=== PATIENT | female | born 1960 | race Caucasian/White ===

== ENCOUNTER 2017-07-31 13:22 | Emergency (ER) | payer SELFPAY ==
[2017-07-31] MEDS ORDERED: Ketorolac INJ* 30 MG/ML 1 ML VIAL IV PUSH ONE (14:03)
[2017-07-31] MEDS ORDERED: Naproxen TAB* 250 MG PO ONE (15:10)
--- NOTE | 2017-07-31 15:33 | RAD ---
Indication: RIGHT knee pain following fall a couple of weeks ago. Pain with extension. Anterior pain with posterior radiation. Surgery 2 years ago. Comparison: March 02, 2016 Technique: RIGHT knee: AP, tunnel, crosstable lateral, sunrise views. Report: Negative for joint effusion, fracture, joint space narrowing, or malalignment. Unremarkable soft tissue contours. IMPRESSION: Negative radiographic exam of the RIGHT knee.
[2017-07-31 16:16] VITALS: BP 147/66
--- NOTE | 2017-08-01 17:23 | ED ---
Liv Rizzo Edward, scribed for Filipe Salamanca MD on 07/31/17 at 1351 . Lower Extremity - HPI Summary HPI Summary: 56 y/o female presents to the ED c/o sudden onset R knee pain starting 3 days ago. Pt states she fell on her knee 3 days ago onto some rocks and it keeps "locking" on her. The pain is aggravated with movement and rated 10/10 in severity at triage. - History of Current Complaint Chief Complaint: EDExtremityLower Stated Complaint: RT KNEE PAIN/FROM FALL Time Seen by Provider: 07/31/17 13:49 Hx Obtained From: Patient Mechanism Of Injury: Fall From A Standing Position Onset of Pain: Immediate, Post Accident Onset/Duration: Days Severity Currently: Severe Pain Intensity: 10 Pain Scale Used: 0-10 Numeric Timing: Lasting Days Location: Is Discrete @ - R knee Associated Signs And Symptoms: Positive: Knee Pain - Allergies/Home Medications Allergies/Adverse Reactions: Allergies Allergy/AdvReac Type Severity Reaction Status Date / Time No Known Allergies Allergy Verified 07/10/15 08:28 PMH/Surg Hx/FS Hx/Imm Hx Previously Healthy: No Cardiovascular History: Denies: Hx Pacemaker/ICD Musculoskeletal History: Reports: Hx Arthritis - RIGHT KNEE, Other Musculoskeletal History - arthritic,pain climbing stairs,physical therapy only a little help,popping Sensory History: Denies: Hx Contacts or Glasses, Hx Hearing Aid Opthamlomology History: Denies: Hx Contacts or Glasses Neurological History: Reports: Hx Migraine - NONE IN A LONG TIME Psychiatric History: Reports: Hx Anxiety Denies: Hx Panic Disorder - Surgical History Surgery Procedure, Year, and Place: 1989 TUBAL LIGATION, [facility] [place] Hx Anesthesia Reactions: No - Immunization History Date of Tetanus Vaccine: UNKNOWN Date of Influenza Vaccine: UNKNOWN Infectious Disease History: No Infectious Disease History: Denies: Traveled Outside the [place] in Last 30 Days - Family History Known Family History: Negative: Diabetes - Social History Alcohol Use: None Hx Substance Use: No Substance Use Type: Reports: None Hx Tobacco Use: Yes Smoking Status (MU): Light Every Day Tobacco Smoker Type: Cigarettes - 8 PER DAY Review of Systems Constitutional: Negative Eyes: Negative ENT: Negative Cardiovascular: Negative Respiratory: Negative Gastrointestinal: Negative Genitourinary: Negative Positive: Arthralgia - R knee pain Skin: Negative Neurological: Negative Psychological: Normal All Other Systems Reviewed And Are Negative: Yes Physical Exam - Summary Physical Exam Summary: VITAL SIGNS: Reviewed. GENERAL: ~Patient is a well-developed and nourished female who is lying comfortable in the stretcher. ~Patient is not in any acute respiratory distress. HEAD AND FACE: No signs of trauma. ~No ecchymosis, hematomas or skull depressions. No sinus tenderness. EYES: PERRLA, EOMI x 2, No injected conjunctiva, no nystagmus. EARS: Hearing grossly intact. Ear canals and tympanic membranes are within normal limits. MOUTH: Oropharynx within normal limits. NECK: Supple, trachea is midline, no adenopathy, no JVD, no carotid bruit, no c- spine tenderness, neck with full ROM. CHEST: Symmetric, no tenderness at palpation LUNGS: Clear to auscultation bilaterally. No wheezing or crackles. CVS: Regular rate and rhythm, S1 and S2 present, no murmurs or gallops appreciated. ABDOMEN: Soft, non-tender. No signs of distention. No rebound no guarding, and no masses palpated. Bowel sounds are normal. EXTREMITIES: No edema, no cyanosis or clubbing. No ecchymosis, erythema or deformities in the R knee. Decreased ROM secondary to pain in the R knee. Anterior drawer test negative. NEURO: Alert and oriented x 3. No acute neurological deficits. Speech is normal and follows commands. SKIN: Dry and warm Triage Information Reviewed: Yes Vital Signs On Initial Exam: Initial Vitals Temp Pulse Resp BP Pulse Ox 98.1 F 80 18 115/88 97 07/31/17 13:24 07/31/17 13:24 07/31/17 13:24 07/31/17 13:24 07/31/17 13:24 Vital Signs Reviewed: Yes Diagnostics - Vital Signs Vital Signs Temp Pulse Resp BP Pulse Ox 07/31/17 13:24 98.1 F 80 18 115/88 97 - Laboratory Lab Statement: Any lab studies that have been ordered have been reviewed, and results considered in the medical decision making process. - Radiology KNEE XR Xray Interpretation: No Acute Changes - Negative radiographic exam of the RIGHT knee. Radiology Interpretation Completed By: Radiologist Lower Extremity Course/Dx - Course Assessment/Plan: 56 y/o female presents to the ED c/o sudden onset R knee pain starting 3 days ago. Pt states she fell on her knee 3 days ago onto some rocks and it keeps "locking" on her. The pain is aggravated with movement and rated 10 /10 in severity at triage. KNEE XR SHOWS Negative radiographic exam of the RIGHT knee. R knee XR negative for fracture dislocation. The patient was given Naproxen for pain. The pt will be d/c home with f/u with pcp. The pt was given a prescription for Naproxen. The pt is hemodynamically stable and A&Ox3. - Diagnoses Differential Diagnosis/HQI/PQRI: Positive: Arthritis, Bursitis, Cellulitis, Contusion, Fracture (Closed), Sprain, Strain Provider Diagnoses: Right knee pain Discharge - Discharge Plan Condition: Stable Disposition: HOME Prescriptions: Naproxen TAB* [Naprosyn 250 mg TAB*] 500 mg PO Q8H PRN #20 tab PRN Reason: Pain Patient Education Materials: Knee Pain (ED) Forms: *Work Release Referrals: Keven Kim MD [Primary Care Provider] - 3 Days (PLEASE F/U IN 2-3 DAYS) The documentation as recorded by the Liv carr Edward accurately reflects the service I personally performed and the decisions made by , Filipe Salamanca MD.
== END 2017-07-31 16:15 | disposition home or self-care (01) ==
LOC: ED 13:22
DX: M25.561 Pain in right knee (principal)
CPT/HCPCS: 96374; 99282; A9270-GY

== ENCOUNTER 2017-10-19 14:05 | Emergency (ER) | payer OTHER ==
--- NOTE | 2017-10-19 16:52 | ED ---
Influenza-Like Illness - History of Current Complaint Chief Complaint: EDBackInjuryPain Time Seen by Provider: 10/19/17 14:44 - Allergy/Home Medications Allergies/Adverse Reactions: Allergies Allergy/AdvReac Type Severity Reaction Status Date / Time No Known Allergies Allergy Verified 10/19/17 14:10 PMH/Surg Hx/FS Hx/Imm Hx Cardiovascular History: Denies: Hx Pacemaker/ICD Musculoskeletal History: Reports: Hx Arthritis - RIGHT KNEE, Other Musculoskeletal History - arthritic,pain climbing stairs,physical therapy only a little help,popping Sensory History: Denies: Hx Contacts or Glasses, Hx Hearing Aid Opthamlomology History: Denies: Hx Contacts or Glasses Neurological History: Reports: Hx Migraine - NONE IN A LONG TIME Psychiatric History: Reports: Hx Anxiety Denies: Hx Panic Disorder - Surgical History Surgery Procedure, Year, and Place: 1988 TUBAL LIGATION, Hx Anesthesia Reactions: No - Immunization History Date of Tetanus Vaccine: UNKNOWN Date of Influenza Vaccine: UNKNOWN Infectious Disease History: No Infectious Disease History: Denies: Traveled Outside the [place] in Last 30 Days - Family History Known Family History: Positive: None - denies FHx Negative: Diabetes - Social History Alcohol Use: None Hx Substance Use: No Substance Use Type: Reports: None Hx Tobacco Use: Yes Smoking Status (MU): Light Every Day Tobacco Smoker Type: Cigarettes - 8 PER DAY Physical Exam Vital Signs On Initial Exam: Initial Vitals Temp Pulse Resp BP Pulse Ox 96.6 F 78 20 134/91 97 10/19/17 14:11 10/19/17 14:11 10/19/17 14:11 10/19/17 14:11 10/19/17 14:11 - [place] Coma Scale Coma Scale Total: 15 Diagnostics - Vital Signs Vital Signs Temp Pulse Resp BP Pulse Ox 10/19/17 14:11 96.6 F 78 20 134/91 97 - Laboratory Lab Statement: Any lab studies that have been ordered have been reviewed, and results considered in the medical decision making process. - Radiology chest Xray Interpretation: No Acute Changes - NO EVIDENCE FOR ACTIVE CARDIOPULMONARY DISEASE. Radiology Interpretation Completed By: Radiologist - and myself Flu Symptom Course/Dx - Diagnoses Differential Diagnosis/HQI/PQRI: Positive: Bronchitis, Influenza, Pneumonia, Upper Respiratory Infection, Other - sinusitis Provider Diagnoses: Bronchitis Discharge - Discharge Plan Condition: Stable Disposition: HOME Prescriptions: Albuterol HFA INHALER* [Ventolin HFA Inhaler*] 1 puff INH Q4H PRN #1 mdi PRN Reason: Sob/Wheezing Azithromycin TAB* [Zithromax TAB (Z-NANCIE) 250 mg #6 tabs] 2 tab PO .TODAY, THEN 1 DAILY #1 nancie Fluticasone NASAL SPRAY 50MCG* [Flonase NASAL SPRAY 50MCG*] 2 spray BOTH NARES DAILY #1 btl Patient Education Materials: Upper Respiratory Infection (ED), Acute Bronchitis (ED) Referrals: Ruiz Banuelos MD [Primary Care Provider] - Additional Instructions: Take prescribed medication as directed. Inhaler as needed for SOB/wheezing. Recommend taking mucinex and using flonase. Ibuprofen/tylenol for body aches and headache. Increase fluid intake and get plenty of rest. Hot showers. Any new or worsening symptoms please seek medical attention immediately. Follow up with PCP.
--- NOTE | 2017-10-19 17:29 | RAD ---
INDICATION: Fever myalgia and cough. COMPARISON: Comparison is made with prior chest x-ray study from April 12, 2017. TECHNIQUE: Dual-energy PA and lateral views of the chest were obtained. FINDINGS: The heart is within normal limits in size. Mediastinal and hilar contours appear within normal limits. The lungs are clear. No pleural effusion is present. IMPRESSION: NO EVIDENCE FOR ACTIVE CARDIOPULMONARY DISEASE.
[2017-10-19 17:43] VITALS: BP 142/93
== END 2017-10-19 17:43 | disposition home or self-care (01) ==
LOC: ED 14:05
DX: J40 Bronchitis, not specified as acute or chronic (principal); F17.210 Nicotine dependence, cigarettes, uncomplicated
CPT/HCPCS: 71020; 87502; 99282

== ENCOUNTER 2018-03-27 18:14 | Emergency (ER) | payer OTHER ==
[2018-03-27 18:24] VITALS: BP 132/89
--- NOTE | 2018-03-27 18:47 | UC ---
Knee Pain HPI - HPI Summary HPI Summary: PATIENT PRESENTS WITH 2 WEEKS OF PROGRESSIVELY WORSENING RIGHT KNEE PAIN. HAS A HISTORY OF RIGHT KNEE ARTHROSCOPY MANY YEARS AGO AND HAS HAD INTERMITTENT PAIN SINCE THEN BUT OVER THE PAST 2 WEEKS IT HAS BECOME WORSE AND CONSTANT. SHE DENIES ANY RECENT INJURY OR TRAUMA. KNEE POPS AND FEELS UNSTABLE WHEN SHE WEIGHTBEARS. - History of Current Complaint Chief Complaint: UCLowerExtremity Stated Complaint: KNEE PAIN Time Seen by Provider: 03/27/18 18:24 Hx Obtained From: Patient Onset/Duration: Gradual Onset, Lasting Weeks, Still Present Severity Initially: Moderate Severity Currently: Moderate Pain Intensity: 6 Pain Scale Used: 0-10 Numeric Character: Sharp Aggravating Factor(s): Movement, Weight Bearing Alleviating Factor(s): Rest Associated Signs And Symptoms: Positive: Swelling Able to Bear Weight: Yes - with pain - Allergies/Home Medications Allergies/Adverse Reactions: Allergies Allergy/AdvReac Type Severity Reaction Status Date / Time No Known Allergies Allergy Verified 03/27/18 18:24 Home Medications: Home Medications Acetaminophen [Mapap] 1,000 mg PO PRN 03/27/18 [History] PMH/Surg Hx/FS Hx/Imm Hx Previously Healthy: Yes - Surgical History Surgical History: Yes Surgery Procedure, Year, and Place: 1988 TUBAL LIGATION, [facility], RIGHT KNEE CARTILAGE REPLACED - Family History Known Family History: Positive: None - denies FHx Negative: Diabetes - Social History Alcohol Use: None Substance Use Type: None Smoking Status (MU): Current Every Day Smoker Type: Cigarettes Amount Used/How Often: 5 CIG/DAY Review of Systems Constitutional: Negative Skin: Negative Respiratory: Negative Cardiovascular: Negative Gastrointestinal: Negative Musculoskeletal: Arthralgia, Decreased ROM All Other Systems Reviewed And Are Negative: Yes Physical Exam Triage Information Reviewed: Yes Appearance: Well-Appearing, No Pain Distress, Well-Nourished Vital Signs: Initial Vital Signs Temp 98.7 F 03/27/18 18:20 Pulse 87 03/27/18 18:20 Resp 16 03/27/18 18:20 BP 132/89 03/27/18 18:20 Pulse Ox 96 03/27/18 18:20 Vital Signs Reviewed: Yes Eyes: Positive: Conjunctiva Clear ENT: Positive: Hearing grossly normal Neck: Positive: Supple Respiratory: Positive: No respiratory distress, No accessory muscle use Cardiovascular: Positive: Pulses Normal Abdomen Description: Positive: Soft Musculoskeletal: Positive: ROM Limited @ - RIGHT KNEE, Edema @ - MILD SWOLLEN RIGHT MEDIAL KNEE, Other: - RIGHT KNEE: MEDIAL LINE TENDERNESS. MCL AND LCL INTACT TO STRESS TESTING. NEG LACHMANS. NEG DRAWERS SIGNS. POS MCMURRAYS MEDIALLY. MILD TENDERNESS OVER PATELLAR LIGAMENT, NONE OVER QUADRICEPS TENDON. DECREASED ROM (FLEXION). Neurological: Positive: Alert Psychological: Positive: Age Appropriate Behavior Skin: Negative: rashes Diagnostics - Radiology RIGHT KNEE XRAY Xray Interpretation: No Acute Changes Radiology Interpretation Completed By: Radiologist Knee Pain Course/Dx - Course Course Of Treatment: X-RAY UNREMARKABLE. SUSPECT INTERNAL INJURY TO RIGHT KNEE. PATIENT DECLINES KNEE IMMOBILIZER AND CRUTCHES TODAY. WILL WRAP WITH DAVID BANDAGE AND RECOMMEND REST, ICE, COMPRESSION AND ELEVATION. FOLLOW-UP WITH ORTHOPEDICS FOR FURTHER EVALUATION. - Differential Dx/Diagnosis Provider Diagnoses: SUSPECTED INTERNAL RIGHT KNEE INJURY Discharge - Sign-Out/Discharge Documenting (check all that apply): Discharge/Admit/Transfer - Discharge Plan Condition: Stable Disposition: HOME Patient Education Materials: Knee Pain (ED) Forms: *Work Release Referrals: Jose Gurrola MD [Medical Doctor] - 1 Week Additional Instructions: RIGHT KNEE XRAY TODAY UNREMARKABLE. FOLLOW-UP WITH ORTHO FOR FURTHER EVALUATION. REST, ICE, COMPRESS, ELEVATE. SUSPECTED INTERNAL KNEE INJURY: The examiner of your injured knee suspects an internal injury to the cartilage or internal ligaments. This must be further investigated by an human resources benefits specialist. The knee should be protected, ice packed, and elevated while awaiting your follow-up exam by the orthopedist. If there is severe swelling, severe pain, or any new symptoms while awaiting your exam, you should call the orthopedist. (If he/she is unavailable, call us or return for re-examination.) - Billing Disposition and Condition Condition: STABLE Disposition: HOME
--- NOTE | 2018-03-27 19:39 | RAD ---
HISTORY: Right knee pain COMPARISONS: July 31, 2017 VIEWS: 4, Frontal, lateral, axial, and oblique views of the right knee FINDINGS: BONE DENSITY: Normal. BONES: There is no displaced fracture. JOINTS: There is no arthropathy. There is no suprapatellar joint effusion or lipohemarthrosis. ALIGNMENT: There is no dislocation. SOFT TISSUES: Unremarkable. OTHER FINDINGS: None. IMPRESSION: NO ACUTE OSSEOUS INJURY. IF SYMPTOMS PERSIST, RECOMMEND REPEAT IMAGING.
== END 2018-03-27 20:00 | disposition home or self-care (01) ==
LOC: UCEAST 18:14
DX: S89.91XA Unspecified injury of right lower leg, initial encounter (principal); X58.XXXA Exposure to other specified factors, initial encounter; Y93.9 Activity, unspecified; Y92.9 Unspecified place or not applicable; F17.210 Nicotine dependence, cigarettes, uncomplicated
CPT/HCPCS: 99212; G0463

== ENCOUNTER 2018-08-01 13:02 | Day surgery (SDC) | payer OTHER ==
--- NOTE | 2018-07-28 14:58 | HP ---
PREOPERATIVE HISTORY AND PHYSICAL: DATE OF ADMISSION/SURGERY: 08/01/18 - [facility] DATE OF OFFICE VISIT: 07/28/18 ATTENDING SURGEON: Dr. Elvia Butler.* (DICTATED BY MUKESH CHANDLER) PROCEDURE: Right knee arthroscopic surgery. CHIEF COMPLAINT: Right knee. HISTORY OF PRESENT ILLNESS: Edith is a 57-year-old female who presents to the clinic for right knee pain due to possible meniscus tear. She has failed conservative measures and has therefore agreed to undergo right knee arthroscopic surgery with Dr. Butler on 08/01/18. PAST MEDICAL HISTORY: Migraine. PAST SURGICAL HISTORY: Tubal ligation and right knee scope. The patient denies prior complications with anesthesia. MEDICATIONS: 1. Tylenol 325 mg 2 every 6 hours as needed for pain. 2. Ibuprofen 600 mg 1 tab as needed for discomfort. ALLERGIES: No known drug allergies. FAMILY HISTORY: Positive for heart disease. SOCIAL HISTORY: She lives alone. She works in a correction. She is half-a- pack- per-day smoker. She denies alcohol consumption. She exercises regularly. She is right-hand dominant. REVIEW OF SYSTEMS: A 14-point review of systems was reviewed with the patient. Positive for current complaint, otherwise negative. Denies chest pain, shortness of breath, fever, chills, history of bleeding disorder, history of DVT or PE. Denies history of MRSA, hep C, or HIV. PHYSICAL EXAMINATION GENERAL: A 57-year-old well-developed, well-nourished female, in no acute distress. Alert and oriented x3. Appropriate mood and affect. Appropriate balance and coordination of the lower extremities. VITAL SIGNS: Height 62, weight 147, pulse 74, blood pressure 126/80, respiratory rate 18, temperature 97.6, BMI 26.9. HEENT: Normocephalic, atraumatic. PERRLA. Throat clear. NECK: Supple. PULMONARY: She does have mild wheezing in the right lower lung, but otherwise no wheezing, rhonchi, or rales. CARDIO: Regular rate and rhythm. S1, S2. No murmurs, gallops, or rubs. ABDOMEN: Positive bowel sounds. Soft, nontender. NEURO: Alert and oriented x3. Cranial nerves grossly intact. Sensation intact to light touch. MUSCULOSKELETAL: Right lower extremity: Skin is intact. No warmth or erythema. Tenderness about the fat pad. Tenderness over the medial joint line. Range of motion 2 to 120. Stable to varus and valgus stress. Stable Uyen and negative posterior drawer. Calf soft, nontender. +5/5 strength ankle dorsiflexion and plantar flexion. +2 PT pulse. Sensation intact to light touch distally. DIAGNOSTIC STUDIES: MRI of the right knee revealed no obvious medial or lateral meniscus tear, some chondrosis of the patella, and ACL and PCL were intact. ASSESSMENT AND PLAN: The patient is scheduled to undergo a right knee arthroscopic surgery with Dr. Butler on 08/01/18 for treatment of a possible meniscus tear. She will follow up 10 to 14 days postop for followup and suture removal. Percocet will be used for postop pain management as well as antibiotics since she has had a knee scope in the past. MUKESH CHANDLER [id number]/[facility] #: [id number] MELODIE
[~2018-08-01 13:02] MED LIST: Buffered Lidocaine 0.9% SYRIN* 5 ML/SYR SYRINGE INTRADERM ONE; Dexamethasone TAB* 4 MG ONE; Dexamethasone TAB* 4 MG PO ONE; DiMENhydriNATE IV* 50 MG/ML VIAL IV PUSH PRN; Famotidine IV* 10 MG/ML 2 ML (20 mg) IV ONE; Famotidine IV* 10 MG/ML 2 ML (20 mg) ONE; Morphine INJ* 2 MG/ML 1 ML SYRINGE (TWO MG - NEW SYRINGE VERSION) IV PRN; Naloxone* 0.4 MG/ML 1 ML VIAL IV PRN; Ondansetron INJ* 2 MG/ML VIAL ONE; Ondansetron ODT TAB* 4 MG ONE; PROCHLORPERAZINE INJ 5 MG/ML 2 ML VIAL IV PRN; Scopolamine 1.5 mg* PATCH TRANSDERM PRN; fentaNYL* 50 MCG/ML 2 ML VIAL (100 MCG VIAL) IV PRN; oxyCODONE/Acetamin 5/325 MG* TAB PO PRN
[2018-08-01] MEDS ORDERED: ceFAZolin 2 GM in NS PREMIX(*) 2 GM/100 ML BAG IVPB ONE (13:12)
[2018-08-01] MEDS ORDERED: KETAMINE HCL* 50 MG/ML 10 ML VIAL ONE (13:39)
[2018-08-01] MEDS ORDERED: Midazolam* 1 MG/ML 5 ML VIAL (5 MG) ONE (13:39)
[2018-08-01] MEDS ORDERED: fentaNYL* 50 MCG/ML 2 ML VIAL (100 MCG VIAL) ONE (13:39)
[2018-08-01] MEDS ORDERED: Lidocaine 1% MPF wEPI 200,000* 30 ML SDV ONE (14:00)
[2018-08-01] MEDS ORDERED: ROPIVACAINE 5 MG/ML 30 ML BTL (0.5%) ONE (14:01)
[2018-08-01] MEDS ORDERED: Propofol* 10 MG/ML 20 ML BTL IV PUSH ONE (15:31)
[2018-08-01] MEDS ORDERED: Lidocaine 2% PF * 5 ML VIAL ONE (15:31)
[2018-08-01] MEDS ORDERED: Ketorolac INJ* 30 MG/ML 1 ML VIAL ONE (15:31)
[2018-08-01 16:44] VITALS: BP 142/88
--- NOTE | 2018-08-02 04:21 | OP ---
CC: PCP, Dr. Kim * DATE OF OPERATION: 08/01/18 - [facility] DATE OF : 64 SURGEON: Elvia Butler MD BACK TENDER PULP DRIER: None available. ANESTHESIOLOGIST: Dr. Dale. ANESTHESIA: General. PRE-OP DIAGNOSIS: Right knee effusion with persistent pain. POST-OP DIAGNOSIS: Right knee medial and lateral meniscal tears with small 7 mm x 8 mm medial femoral condyle chondrosis and synovitis. OPERATIVE PROCEDURES: 1. Right knee arthroscopy with synovectomy of the anterior, medial and lateral compartments. 2. Chondroplasty of the medial femoral condyle in the weightbearing zone. 3. Partial medial and partial lateral meniscectomy. COMPLICATIONS: None. ESTIMATED BLOOD LOSS: Minimal. INDICATIONS: Edith Malloy is a 57-year-old female with a work-related injury that caused persistent pain and she cannot get back to work. She has tried antiinflammatories, ice, and heat. She has tried injections. She said it locks on her and she has failed conservative management. She has elected to proceed with surgical treatment. After Worker's Comp approval, she has been approved for surgery. Risks and benefits were discussed at length including but not limited to bleeding; infection; damage to nerves, vessels, surrounding structures; wound nonhealing; persistent pain; need for further surgery; scarring; stiffness; incomplete relief of symptoms; risk of anesthesia. DESCRIPTION OF PROCEDURE: The patient was greeted in the preoperative area by the attending surgeon. The correct extremity was marked, consent was confirmed. The patient was brought back to the operating suite where she was placed in the supine position on the operating table. She then underwent general anesthesia with LMA intubation after which she was appropriately positioned on the bed. A lateral post was positioned, a non-sterile tourniquet was placed high on the proximal thigh. The right leg was then prepped and draped in the usual sterile manner with chlorhexidine soap, scrub and alcohol wipe and a final prep with ChloraPrep. After appropriate surgical pause indicating site, side, procedure, and administration of antibiotics, the knee was intraarticularly injected with 1% lidocaine with epi. The anterior lateral port was made sharp with a #11 blade. Scope was introduced, the joint was examined, there was synovitis present anteriorly. The patellofemoral joint had grade 0 to 1 changes. There was a small area of chondrosis in the medial femoral condyle with unstable flaps ____ _ dimensions listed above. The medial meniscus was examined. There was a radial split tear in the posterior base. This was debrided back using biters and alex. ACL and PCL were intact. Medial and lateral gutters were intact without any loose bodies. Lateral compartment had evidence of a tear with beginning of a radial slit tear about the lateral meniscus. There is evidence of the root having been torn and displaced posteriorly. It did not sublux into the joint and had scar to the capsule posteriorly. This was debrided back. It was probed. It did not displace into the joint. Therefore, no repair was done , although I would continue to watch her. She had lateral based symptoms. After the synovectomy was addressed in extension as well as flexion and abundant synovitis is removed anteriorly, medially and laterally as well as around the patella. After this, complete final images were obtained. The wounds were copiously irrigated. The knee was sterilely lavaged and we removed the loose debris, was irrigated with sterile saline. Portals were closed with 3- 0 nylon. Sterile dressings were applied. The knee was intraarticularly injected with 0.2% ropivacaine. Cryo/Cuff was applied, she was awoken from anesthesia and transferred to PACU in stable condition. POSTOPERATIVE PLAN: She will be weightbearing as tolerated, crutches 3 to 5 days, discharged on pain medications. DVT prophylaxis was considered, but deferred due to no previous personal or family history. I will see the patient back in 10 to 14 days. [id number]/[facility] #: [id number] MELODIE
[2018-08-04] MEDS ORDERED: Scopolamine PATCH Remove* 1 NOTE MISC PATCH OFF ONE (05:51)
== END 2018-08-01 16:45 | disposition home or self-care (01) ==
LOC: OREAST 13:02
PROVIDERS: ATTEND Orthopaedic Surgery
DX: S83.241A Other tear of medial meniscus, current injury, right knee, initial encounter (principal); S83.281A Other tear of lateral meniscus, current injury, right knee, initial encounter; M65.861 Other synovitis and tenosynovitis, right lower leg; X58.XXXA Exposure to other specified factors, initial encounter; Y92.9 Unspecified place or not applicable; Y99.0 Civilian activity done for income or pay; Z72.0 Tobacco use; J45.909 Unspecified asthma, uncomplicated
CPT/HCPCS: 88304; A9270-GY; J0690; J1885; J2001; J2250; J2704; J2795; J3010; J8540